=== PATIENT | female | born 1975 | race Caucasian/White ===

== ENCOUNTER 2017-02-18 09:56 | Emergency (ER) | payer MEDICAID ==
[~2017-02-18] VITALS: Ht 154.9 cm; Wt 68.5 kg
[2017-02-18 10:06] VITALS: BP 114/63
--- NOTE | 2017-02-18 10:06 | NUR ---
PT TAKEN TO OVERFLOW
--- NOTE | 2017-02-18 10:10 | NUR ---
41/F presents to the ED with complaints of cough since Friday; x3 days ago. Pt describes the cough as a dry, hacking cough. Also has complaints of chest discomfort and mid upper back pain with cough, sore throat and body aches. Pt describes the pain 7/10, aching, generalized. Lungs clear bilaterally. Denies fever or chills. Denies N/V/D. Skin warm and dry, normal in color for ethnicity. AOX4, clear speech, nepali speaking. VSS. Denies medical hx.
--- NOTE | 2017-02-18 10:13 | NUR ---
Pt moved to bed 2.
--- NOTE | 2017-02-18 10:14 | NUR ---
Pt placed in a gown, in position of comfort. Comfort needs met. Will continue to monitor.
[2017-02-18] MEDS ORDERED: ALBUTEROL SULFATE/IPRATROPIU 3 ML SOL IH ONE (10:15)
--- NOTE | 2017-02-18 10:25 | NUR ---
RT at bedside for breathing treatment.
[2017-02-18] MEDS ORDERED: guaiFENesin/CODEINE 100/10MG 5 ML UDC PO ONE (11:05)
--- NOTE | 2017-02-18 11:25 | NUR ---
Patient resting comfortably in bed. Vital signs stable. Respirations even and unlabored. Comfort needs met. Pt awaiting lab results. Will continue to monitor.
[2017-02-18 12:07] VITALS: BP 97/61
--- NOTE | 2017-02-18 12:07 | NUR ---
Patient discharged with v/s stable. Written and verbal after care instructions given and explained. Patient alert, oriented and verbalized understanding of instructions. Ambulatory with steady gait. All questions addressed prior to discharge. ID band removed. Patient advised to follow up with PMD. Rx of Tessalon Perles 100mg given. Patient educated on indication of medication including possible reaction and side effects. Opportunity to ask questions provided and answered.
== END 2017-02-18 12:07 | disposition home or self-care (01) ==
LOC: MED 09:56
DX: J40 Bronchitis, not specified as acute or chronic (principal); J02.9 Acute pharyngitis, unspecified
CPT/HCPCS: 71010; 87081; 94640; 94760; 99285; J7620; Q0092

== ENCOUNTER 2019-06-06 15:45 | Emergency (ER) | payer SELFPAY ==
[~2019-06-06] VITALS: Ht 154.9 cm; Wt 65.8 kg
--- NOTE | 2019-06-06 15:50 | NUR ---
PT AMBULATED TO BED 11, STEADY GAIT.
[2019-06-06 15:52] VITALS: BP 117/67
--- NOTE | 2019-06-06 16:06 | NUR ---
44 Y/F PRESENTS TO ED FOR R ANTERIOR EAR/CHEECK LUMP. NO VISIBLE OPENING FOR BUG BITE. PT NOTICED IT WHILE SHE WAS SHOWERING YESTERDAY. PT REPORTS 8/10 PAIN. PT A&O X 4. RR EVEN AND UNLABORED. LUNGS CLEAR, ABD SOFT, DENIES ABD PAIN OR CHEST PAIN. DENEIS DYSURIA. PMH- DENIES. NKDA
[2019-06-06] MEDS ORDERED: KETOROLAC 30 MG/ML VIAL IVP ONE (16:30)
--- NOTE | 2019-06-06 16:40 | NUR ---
PT TAKEN TO CT VIA WHEELCHAIR.
--- NOTE | 2019-06-06 16:59 | NUR ---
LAB WORK OF CMP, CBC LOW AND SENT TO THE LAB.
[2019-06-06 17:08] LABS: BASOPHILS # (AUTO) 0.1 K/uL (0.00-0.22); BASOPHILS % (AUTO) 0.6 % (0.0-2.0); EOSINOPHILS # (AUTO) 0.3 K/uL (0-0.4); EOSINOPHILS % (AUTO) 3.4 % (0.0-4.0); HEMATOCRIT 39.7 % (36-48); HEMOGLOBIN 13.2 g/dL (12.0-16.0); LYMPHOCYTES # (AUTO) 2.3 K/uL (2.5-16.5); LYMPHOCYTES % (AUTO) 24.3 % (20.5-51.1); MEAN CORPUSCULAR HEMOGLOBIN 30 pg (27-31); MEAN CORPUSCULAR HGB CONC 33 g/dL (33-37); MEAN CORPUSCULAR VOLUME 88.7 fL (80-94); MONOCYTES # (AUTO) 0.5 K/uL (0.8-1.0); MONOCYTES % (AUTO) 5.3 % (1.7-9.3); NEUTROPHILS # (AUTO) 6.2 K/uL (1.8-7.7); NEUTROPHILS % (AUTO) 66.4 % (42.2-75.2); PLATELET COUNT (AUTO) 251 K/uL (140-450); RED BLOOD CELL COUNT(AUTO) 4.47 MIL/uL (4.20-5.40); RED CELL DISTRIBUTION WIDTH 14.8 % (11.6-13.7); WHITE BLOOD COUNT (AUTO) 9.4 K/uL (4.8-10.8)
[2019-06-06 17:28] LABS: ALBUMIN 3.8 g/dL (3.4-5.0); ANION GAP 11.8 (8-16); CARBON DIOXIDE 26.8 mmol/L (21-32); CREATININE 0.7 mg/dL (0.6-1.3); POTASSIUM 3.6 mmol/L (3.5-5.1); TOTAL BILIRUBIN 0.3 mg/dL (0.0-1.0)
[2019-06-06] MEDS ORDERED: SULFAMETH/TRIMETH DS 800/160MG 1 TAB PO ONE (17:40)
[2019-06-06 17:51] VITALS: BP 109/61
== END 2019-06-06 17:51 | disposition home or self-care (01) ==
LOC: MED 15:45
DX: H60.11 Cellulitis of right external ear (principal)
CPT/HCPCS: 36415; 70486; 80053; 85025; 96374; 99284; J1885